=== PATIENT | female | born 1960 ===

== ENCOUNTER 2018-06-05 08:57 | Emergency (ER) | payer SELFPAY ==
[~2018-06-05] VITALS: Ht 160 cm; Wt 71.4 kg
[2018-06-05 09:00] VITALS: RESP 18; Ht 160 cm; Wt 71.4 kg
[2018-06-05] MEDS ORDERED: IBUPROFEN 600 MG TAB PO ONE (10:30)
[2018-06-05] MEDS ORDERED: ACET-141 PO (11:36)
[2018-06-05] MEDS ORDERED: IBUP-1542 PO (11:36)
[2018-06-05] MEDS ORDERED: MED4DP PO (11:38)
--- NOTE | 2018-06-05 11:41 | ERD ---
ER Documentation Chief Complaint Chief Complaint LT ARM PAIN SINCE LAST NIGHT HPI 57-year-old female presents for left wrist pain times 1 day. Patient has a past medical psoriasis for which she is currently having a flareup and has topical medications. States that the risk pain has been radiating upwards to her elbow and upper left shoulder. Describes the pain is 6 out of 10, intermittent. She also feels numbness and tingling. She denies chest pain or shortness of breath. Denies fevers. No prior similar symptoms. ROS All systems reviewed and are negative except as per history of present illness. Medications Home Meds Active Scripts Methylprednisolone* (Medrol* DOSE PACK) 4 Mg/Dose-Pack Tab.ds.pk, 4 MG PO . DIRECTED for wrist pain/arthritis, #1 PACKET Prov:BELÉN STEVENSON DO 06/05/18 Acetaminophen* (Acetaminophen*) 500 MG Extra Strength Tablet, 500 MG PO Q4H PRN for PAIN AND OR ELEVATED TEMP, #30 TAB Prov:BELÉN STEVENSON 06/05/18 Ibuprofen* (Motrin*) 600 Mg Tab, 600 MG PO Q6H PRN for PAIN AND OR ELEVATED TEMP, #30 TAB Prov:BELÉN STEVENSON DO 06/05/18 Allergies Allergies: Coded Allergies: Penicillins (Verified Allergy, Unknown, 06/05/18) PMhx/Soc History of Surgery: Yes (GALLBLADDER REMOVAL 2014) Hx Alcohol Use: No Hx Substance Use: No Hx Tobacco Use: No Smoking Status: Never smoker Physical Exam Vitals Vital Signs Date Temp Pulse Resp B/P (MAP) Pulse Ox O2 O2 Flow FiO2 Time Delivery Rate 06/05/18 98.2 80 18 132/77 98 09:00 (95) Physical Exam Const: No acute distress Resp: Clear to auscultation bilaterally Cardio: Regular rate and rhythm, no murmurs, bilateral radial pulses intact Abd: Soft, non tender, non distended. Normal bowel sounds Skin: No petechiae or rashes Back: No midline or flank tenderness Ext: Examination of the left wrist shows swelling over the lateral side of the wrist and hand, there is mild tenderness palpation. There is also erythema noted. Mild decreased range of motion. Neur: Awake and alert, bilateral upper and lower extremity sensation intact Psych: Normal Mood and Affect Result Diagram: 06/05/18 1037 06/05/18 1037 Results 24 hrs Laboratory Tests Test 06/05/18 10:37 White Blood Count 8.6 10^3/ul Red Blood Count 4.93 10^6/ul Hemoglobin 16.1 g/dl Hematocrit 48.2 % Mean Corpuscular Volume 97.8 fl Mean Corpuscular Hemoglobin 32.7 pg Mean Corpuscular Hemoglobin Concent 33.4 g/dl Red Cell Distribution Width 11.7 % Platelet Count 278 10^3/UL Mean Platelet Volume 10.4 fl Immature Granulocytes % 0.300 % Neutrophils % 74.0 % Lymphocytes % 16.6 % Monocytes % 5.5 % Eosinophils % 2.8 % Basophils % 0.8 % Nucleated Red Blood Cells % 0.0 /100WBC Immature Granulocytes # 0.030 10^3/ul Neutrophils # 6.4 10^3/ul Lymphocytes # 1.4 10^3/ul Monocytes # 0.5 10^3/ul Eosinophils # 0.2 10^3/ul Basophils # 0.1 10^3/ul Nucleated Red Blood Cells # 0.0 10^3/ul Sodium Level 141 mmol/L Potassium Level 4.3 mmol/L Chloride Level 102 mmol/L Carbon Dioxide Level 29 mmol/L Anion Gap 10 Blood Urea Nitrogen 13 mg/dl Creatinine 0.72 mg/dl Est Glomerular Filtrat Rate mL/min > 60 mL/min Glucose Level 108 mg/dl Calcium Level 9.8 mg/dl Total Bilirubin 0.6 mg/dl Direct Bilirubin 0.00 mg/dl Indirect Bilirubin 0.6 mg/dl Aspartate Amino Transf (AST/SGOT) 38 IU/L Alanine Aminotransferase (ALT/SGPT) 60 IU/L Alkaline Phosphatase 92 IU/L Total Protein 7.9 g/dl Albumin 4.9 g/dl Globulin 3.00 g/dl Albumin/Globulin Ratio 1.63 Current Medications Medications Dose Sig/Saran Start Time Status Last (Trade) Ordered Route PRN Stop Time Admin Dose Reason Admin Ibuprofen 600 mg ONCE ONCE 06/05/18 DC 06/05/18 (Motrin) PO 10:30 10:25 06/05/18 10:31 Procedures/MDM Medical Decision Making: Differential diagnosis includes but not limited to left wrist psoriatic arthritis, fracture, dislocation, ligamentous sprain, muscle Patient appeared well on physical exam. Thre is left wrist swelling and lateral side of the hand swelling decreased range of motion noted. Area was erythematous and warm to touch. ED course: Patient was given Motrin. Symptoms improved with treatment. CBC: no e/o of systemic infection or severe anemia CMP: no e/o severe acidosis, alkalosis, renal failure, diabetic ketoacidosis, liver disease X-ray of the left hand and left wrist showed no acute abnormalities, there is Mild to moderate first carpometacarpal and triscaphe osteoarthrosis with mild adjacent soft tissue swelling. Prescription(s): Patient given prescription for supportive medications and Medrol Dosepak. Advised that she will need to follow with primary care physician may need referral to a hydraulic corrugating machine operator if symptoms do not improve. Patient advised to follow up with PCP in 1-2 days. Patient advised to return to ED for new or worsening symptoms. Patient stable on discharge from the ED. Disclaimer: Inadvertent spelling and grammatical errors are likely due to EHR/dictation software use and do not reflect on the overall quality of patient care. Also, please note that the electronic time recorded on this note does not necessarily reflect the actual time of the patient encounter. Departure Diagnosis: Primary Impression: Left wrist pain Condition: Fair Patient Instructions: Ibuprofen Oral tablet Referrals: [facility] YOU HAVE RECEIVED A MEDICAL SCREENING EXAM AND THE RESULTS INDICATE THAT YOU DO NOT HAVE A CONDITION THAT REQUIRES URGENT TREATMENT IN THE EMERGENCY DEPARTMENT. FURTHER EVALUATION AND TREATMENT OF YOUR CONDITION CAN WAIT UNTIL YOU ARE SEEN IN YOUR DOCTORS OFFICE WITHIN THE NEXT 1-2 DAYS. IT IS YOUR RESPONSIBILITY TO MAKE AN APPOINTMENT FOR FOLOW-UP CARE. IF YOU HAVE A PRIMARY DOCTOR --you should call your primary doctor and schedule an appointment IF YOU DO NOT HAVE A PRIMARY DOCTOR YOU CAN CALL OUR PHYSICIAN REFERRAL HOTLINE AT IF YOU CAN NOT AFFORD TO SEE A PHYSICIAN YOU CAN CHOSE FROM THE FOLLOWING [facility] [id number] [facility] [address] [facility] [address] [facility] [address] [facility] [address] [facility] [facility]. [address] Additional Instructions: Call your primary care doctor TOMORROW for an appointment during the next 1-2 days.See the doctor sooner or return here if your condition worsens before your appointment time. BELÉN STEVENSON DO Jun 05, 2018 11:41
[2018-06-05 11:52] VITALS: BP 107/61; PULSE 64
== END 2018-06-05 11:53 | disposition home or self-care (01) ==
LOC: FTE 08:57
DX: M25.532 Pain in left wrist (principal)
CPT/HCPCS: 80053; 85025; 93005